=== PATIENT | female | born 1955 | race Caucasian/White ===

== ENCOUNTER 2020-05-21 06:35 | Outpatient (CLI) | payer OTHER, SELFPAY ==
--- NOTE | ~2020-05-21 | MR_ITS ---
EXAMINATION: MR shoulder LT wo con DATE: 05/21/2020 07:57 INDICATION: Superior glenoid labrum lesion. Severe left shoulder pain. TECHNIQUE: Magnetic resonance imaging (MRI) of the left shoulder was performed without intravenous co ntrast. Sequences included axial PD-weighted FS FSE, coronal oblique PD-weighted FS FSE, coronal obli que T2-weighted FS FSE, sagittal PD-weighted FS FSE, and sagittal T1-weighted SE. COMPARISON: None. FINDINGS: Coracoacromial arch: The acromion undersurface is curved in morphology (type II). The coracoacromial ligament is normal. M ild acromioclavicular osteoarthritis with small inferiorly directed osteophyte at the lateral head of the clavicle.. Rotator cuff: Supraspinatus tendinopathy without discrete tear. The infraspinatus, teres minor and subscapularis te ndons are normal. Normal rotator cuff muscle bulk and signal. Biceps tendon, glenoid labrum and glenohumeral cartilage: Long head of the biceps tendon is normal. There is a SLAP tear with linear increased signal extending laterally into the substance of the superior to posterior superior labrum from the 12:00-10:30 posit ion. There is partial thickness cartilage loss with smooth chondral surface along the cephalad half o f the glenoid. Fluid: Physiologic amount of fluid in the glenohumeral joint and biceps tendon sheath. No loose osteochondra l bodies. Small amount of fluid in the subacromial/subdeltoid bursa consistent with mild bursitis. Bones: Normal marrow signal with no edema, fracture or abnormal marrow replacing process. IMPRESSION: 1. Supraspinatus tendinopathy without discrete tear. 2. SLAP tear at the superior to posterior superior glenoid labrum. 3. Mild glenohumeral and acromioclavicular osteoarthritis. Reviewed, dictated and finalized at location A.
== END 2020-05-21 06:36 | disposition home or self-care (01) ==
LOC: ANHIMG 06:50
PROVIDERS: PCP Chiropractor; Visit Provider Chiropractor
DX: S43.432A Superior glenoid labrum lesion of left shoulder, initial encounter (principal); M19.012 Primary osteoarthritis, left shoulder
CPT/HCPCS: 73221